=== PATIENT | male | born 1975 | race African-American/Black ===

== ENCOUNTER 2019-04-11 07:54 | Emergency (ER) | payer OTHER ==
[2019-04-11 08:00] VITALS: BP 141/91; PULSE 76; TEMP 98.9; BMI 32.1
--- NOTE | 2019-04-11 08:07 | PDOC ---
History of Present Illness - General Chief Complaint: Lightheaded Stated Complaint: dizziness Time Seen by Provider: 04/11/19 08:05 - History of Present Illness Initial Comments: 04/11/19 08:31 Chief complaint: "Spinning sensation" momentarily when changing position or moving his head. Mild sinus congestion. History of present illness: Above symptoms, beginning yesterday, mild, not interfering with activity or work Review of systems: Denies earache, tinnitus, or decreased hearing. Denies other visual or focal neurologic symptoms, unsteadiness of gait. Denies nausea, vomiting. Denies chest pain, shortness of breath, abdominal pain. Remainder of systems reviewed and negative Past medical history: Healthy except for mild hypertension controlled on medication. 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 Stable home and family Family history: Reviewed and noncontributory including early coronary artery disease, neurologic disease, metabolic diseases including diabetes, and cancer Physical exam: Alert and oriented well-developed well-nourished no acute distress cheerful and cooperative Afebrile, vital signs normal PERRLA 4 mm, fundi benign with sharp disc margins and good central venous pulsations. No hemorrhages or exudates Visual schaeffer intact to confrontation. Vision intact ENT clear Neck supple without bruit mass or nodes Chest clear, full breath sounds bilaterally CV S1 and S2 normal without murmur rub or gallop pulses full and symmetric no JVD or edema no bruits 80 and regular Abdomen soft nontender without mass or organomegaly Neurological C2 to 12 intact. Strength full and symmetric. No focal sensory or motor deficits. Cerebellar function intact. Gait stable and unimpaired. There is mild momentarily vertigo that can be reproduced by rapid head movements and change of positions. It subsides immediately. No other associated symptoms Extremities no CCE Skin clear, no rash, adequate turgor and mucous membranes Impression: Vertigo due to labyrinthine irritation, probably crystals in the canals. No sign of other neurologic disease Plan: Rest, symptomatic treatment, follow-up PMD/ENT if no improvement 2-3 days. Fully ambulatory and in no significant distress at discharge to follow-up as directed Past History - Past Medical History Allergies/Adverse Reactions: Allergies Allergy/AdvReac Type Severity Reaction Status Date / Time No Known Allergies Allergy Verified 04/11/19 07:55 Home Medications: Ambulatory Orders Meclizine HCl [Antivert -] 1 - 2 tab PO TID PRN #20 tablet 04/11/19 COPD: No CHF: No DVT: No HTN: Yes (does not always take medications) - Suicide/Smoking/Psychosocial Hx Smoking History: Never smoked Hx Alcohol Use: Yes (OCASIONAL) Drug/Substance Use Hx: No *Physical Exam - Vital Signs Last Vital Signs Temp Pulse Resp BP Pulse Ox 98.9 F 76 15 141/91 100 04/11/19 07:54 04/11/19 07:54 04/11/19 07:54 04/11/19 07:54 04/11/19 07:54 Medical Decision Making - Medical Decision Making 04/11/19 08:42 Improved with meclizine. Last vertigo. Gait stable and unimpaired. Neurologic exam intact. *DC/Admit/Observation/Transfer Diagnosis at time of Disposition: Vertigo - Discharge Dispostion Disposition: HOME Condition at time of disposition: Improved Decision to Admit order: No - Prescriptions Prescriptions: Meclizine HCl [Antivert -] 1 - 2 tab PO TID PRN #20 tablet PRN Reason: Vertigo - Referrals Referrals: Gamaliel Rodriges MD [Primary Care Provider] - 2 Days - Patient Instructions Printed Discharge Instructions: DI for Vertigo - Post Discharge Activity Forms/Work/School Notes: Back to Work
[2019-04-11] MEDS ORDERED: MECLIZINE HCL 25 MG TABLET (FP) PO ONE (08:13)
[2019-04-11] MEDS ORDERED: MECLIZINE HCL 25 MG TABLET (FP) ONE (08:20)
== END 2019-04-11 08:46 | disposition home or self-care (01) ==
LOC: FER 07:54
DX: R42 Dizziness and giddiness (principal); I10 Essential (primary) hypertension
CPT/HCPCS: 99281-25

== ENCOUNTER 2022-09-01 10:33 | Emergency (ER) | payer OTHER ==
[2022-09-01 10:39] VITALS: BP 122/89; PULSE 78; RESP 18; TEMP 97.8; BMI 30.2
[2022-09-01] MEDS ORDERED: MECLIZINE HCL 25 MG TABLET (FP) PO ONE (11:17)
[2022-09-01] MEDS ORDERED: MECLIZINE HCL 25 MG TABLET (FP) ONE (11:30)
== END 2022-09-01 12:19 | disposition home or self-care (01) ==
LOC: FER 10:33
DX: R42 Dizziness and giddiness (principal)
CPT/HCPCS: 99283-25